=== PATIENT | female | born 1995 | race Hispanic/Latino ===

== ENCOUNTER 2018-07-04 16:59 | Emergency (ER) | payer OTHER ==
[~2018-07-04 16:59] MED LIST: ISOVUE-370 76%-LOCM 1 ML ONE
[2018-07-04 17:45] LABS: #Basophils 0.1 thou/uL (0.0-0.2); #Eosinphils 0.1 thou/uL (0.0-0.7); #Lymphocytes 2.1 thou/uL (1.20-3.40); #Monocytes 0.8 thou/uL (0.11-0.59); #Neutrophils 13.4 thou/uL (1.40-6.50); %Basophils 0.4 % (0.0-1.0); %Eosinophils 0.7 % (0.0-10.0); %Lymphocytes 12.5 % (21.0-51.0); %Monocytes 4.9 % (0.0-10.0); %Neutrophils 81.6 % (42.0-75.0); Hemoglobin 12.8 g/dL (12.0-16.0); Mean Corpuscular HGB CONC 32.3 g/dL (32.0-36.0); Mean Corpuscular Hemoglobin 27.3 pg (27.0-31.0); Mean Corpuscular Volume 84.5 fL (78.0-98.0); Mean Platelet Volume 6.6 fL (7.4-10.4); Platelet Count 580 thou/uL (130-400); RBC Distribution Width 12.2 % (11.5-14.5); Red Blood Cell (RBC) Count 4.69 mill/uL (4.20-5.40); White Blood Cell (WBC) Count 16.5 thou/uL (4.8-10.8)
[2018-07-04 17:49] LABS: BHCG - Serum Negative (NEGATIVE); Pregs Control Background? CLEAR/WHITE (CLR/WHITE); Pregs Control Bar Appear? YES (CONTROL BAR)
[2018-07-04 17:59] LABS: Bilirubin Negative (Negative); Blood, Urine Large (Negative); Clarity CLOUDY (Clear); Glucose, Urine (Dipstick) Negative (Negative); Leukocyte Small (Negative); Nitrite Negative (Negative); Protein, Urine (Dipstick) Negative (Neg-Trace); Specific Gravity, Urine 1.018 (1.002-1.036); Urobilinogen 0.2 mg/dL (0.2-1.0); pH, Urine 6.5 (5.0-9.0)
[2018-07-04 18:00] LABS: ALT (SGPT) 10 U/L (8-55); AST (SGOT) 15 U/L (5-34); Albumin 4.6 g/dL (3.5-5.0); Alkaline Phosphatase 96 U/L (40-150); Anion Gap 14 mmol/L (10-20); BUN (Urea Nitrogen) 19 mg/dL (7.0-18.7); Bilirubin, Total 0.6 mg/dL (0.2-1.2); Calc. Creatinine Clearance 0 mL/min (70-130); Calcium 9.8 mg/dL (7.8-10.44); Carbon Dioxide 24 mmol/L (22-29); Chloride 104 mmol/L (98-107); Estimated GFR-MDRD 78; Globulin 4.4 g/dL (2.4-3.5); Glucose 110 mg/dL (70-105); Lipase 14 U/L (8-78); Potassium 4.2 mmol/L (3.5-5.1); Sodium 138 mmol/L (136-145)
[2018-07-04 18:02] LABS: Bacteria/HPF 1+ HPF (None Seen); RBC/HPF GREATER THAN 50-TNTC HPF (0-3)
[2018-07-04 18:03] LABS: Pathc Cast-AUWi Flag 2.61 (0-2.49)
[2018-07-04 18:04] LABS: Pregnancy Test - Urine (BHCG) Negative (Negative); Pregu Control Background? CLEAR/WHITE (CLR/WHITE); Pregu Control Bar Appear? YES (CONTROL BAR); Specific Gravity 1.018 (1.002-1.036)
[2018-07-04 18:05] LABS: Hyaline Casts/LPF 0-3 HYALINE CAST LPF (0-3 Hyaline); Manual Microscopic Reviewed? No Path Casts Seen
[2018-07-04] MEDS ORDERED: Ondansetron HCl/PF 4 MG/2 ML Vial ONE (18:31)
[2018-07-04] MEDS ORDERED: Dicyclomine 20 MG TAB ONE ×2 (18:31→19:15)
[2018-07-04] MEDS ORDERED: Ketorolac Tromethamine 30 MG/ML VIAL ONE (20:23)
--- NOTE | 2018-07-04 22:55 | CT ---
CT ABDOMEN AND PELVIS WITH IV CONTRAST: 07/04/18 HISTORY: Right lower quadrant abdominal pain. Nausea and vomiting. FINDINGS: The lung bases are clear. The liver, spleen, pancreas, and adrenal glands are normal. No calcified ga llstones are seen. There are nonobstructing bilateral renal calculi. There is a 2 mm calculus at the right UPJ without hydronephrosis. No free air, free fluid or lymphadenopathy seen in the abdomen or pelvis. A normal appearing appendix is present. The uterus and ovaries are present. No acute osseous abnormalities are identified. IMPRESSION: 1. No evidence of appendicitis. 2. Nonobstructing bilateral renal calculi. 3. A 2 mm nonobstructing right UPJ calculus. POS: [facility]
== END 2018-07-04 20:33 | disposition home or self-care (01) ==
LOC: ERS 16:59
DX: N20.0 Calculus of kidney (principal); N13.9 Obstructive and reflux uropathy, unspecified
CPT/HCPCS: 74177; 80053; 81003; 81015; 81025; 83690; 84703; 85025; 87086; 96361; 96374; 96375; J1885; J2405